=== PATIENT | male | born 1940 | race Asian ===

== ENCOUNTER 2018-02-08 10:09 | Emergency (ER) | payer OTHER, BC, MEDICARE ==
[2018-02-08 11:14] LABS: ADD MAN DIFF? NO
[2018-02-08 11:15] LABS: WHITE BLOOD COUNT 8.5 10^3/ul (4.8-10.8)
[2018-02-08 11:15] LABS: BASOPHILS % 0.5 % (0.0-2.0); EOSINOPHILS # 0.2 10^3/ul (0.0-0.5); EOSINOPHILS % 2.2 % (0.0-7.0); HEMATOCRIT 41.7 % (42.0-52.0); HEMOGLOBIN 14.3 g/dl (14.0-18.0); LYMPHOCYTES # 2.9 10^3/ul (0.8-2.9); LYMPHOCYTES % 33.6 % (15.0-51.0); MEAN CORPUSCULAR HEMOGLOBIN 29.4 pg (29.0-33.0); MEAN CORPUSCULAR HGB CONC 34.3 g/dl (32.0-37.0); MEAN CORPUSCULAR VOLUME 85.8 fl (82.0-101.0); MEAN PLATELET VOLUME 9.6 fl (7.4-10.4); MONOCYTE # 0.6 10^3/ul (0.3-0.9); MONOCYTES % 6.7 % (0.0-11.0); NEUTROPHIL # 4.8 10^3/ul (1.6-7.5); NEUTROPHILS % 56.9 % (39.0-77.0); PLATELET COUNT 203 10^3/UL (140-415); RED BLOOD COUNT 4.86 10^6/ul (4.70-6.10); RED CELL DISTRIBUTION WIDTH 12.1 % (11.5-14.5)
[2018-02-08 11:29] LABS: ADD UMIC NO; UR ASCORBIC ACID NEGATIVE (NEGATIVE); UR BILIRUBIN (Dip) NEGATIVE (NEGATIVE); UR BLOOD (Dip) NEGATIVE (NEGATIVE); UR CLARITY CLEAR (CLEAR); UR COLOR YELLOW (YELLOW); UR GLUCOSE (Dip) 3+ mg/dL (NEGATIVE); UR KETONES (Dip) NEGATIVE (NEGATIVE); UR LEUKOCYTE ESTERASE (Dip) NEGATIVE Leu/ul (NEGATIVE); UR NITRITE (Dip) NEGATIVE (NEGATIVE); UR SPECIFIC GRAVITY (Dip) 1.023 (1.003-1.030); UR TOTAL PROTEIN (Dip) NEGATIVE (NEGATIVE); UR UROBILINOGEN (Dip) NEGATIVE (NEGATIVE)
[2018-02-08 11:35] LABS: ALANINE AMINOTRANSFERASE 80 IU/L (13-69); ALBUMIN 4.6 g/dl (3.3-4.9); ALBUMIN/GLOBULIN RATIO 1.24; ALKALINE PHOSPHATASE 158 IU/L (42-121); ANION GAP 24 (8-16); ASPARTATE AMINO TRANSFERASE 45 IU/L (15-46); BILIRUBIN,INDIRECT 0.2 mg/dl (0-1.1); BILIRUBIN,TOTAL 0.2 mg/dl (0.2-1.3); BLOOD UREA NITROGEN 18 mg/dl (7-20); CALCIUM 9.7 mg/dl (8.4-10.2); CARBON DIOXIDE 20 mmol/L (21-31); CHLORIDE 102 mmol/L (97-110); CREATININE 0.82 mg/dl (0.61-1.24); GLUCOSE 275 mg/dl (70-220); POTASSIUM 4.5 mmol/L (3.5-5.1); SODIUM 141 mmol/L (135-144); TOTAL PROTEIN 8.3 g/dl (6.1-8.1)
== END 2018-02-08 13:09 | disposition home or self-care (01) ==
LOC: FTE 10:09
DX: S20.211A Contusion of right front wall of thorax, initial encounter (principal); R51 Headache; R06.02 Shortness of breath; I10 Essential (primary) hypertension; E11.9 Type 2 diabetes mellitus without complications; W01.0XXA Fall on same level from slipping, tripping and stumbling without subsequent striking against object, initial encounter; Y92.9 Unspecified place or not applicable; Z79.82 Long term (current) use of aspirin; Z79.84 Long term (current) use of oral hypoglycemic drugs
CPT/HCPCS: 36415; 70450; 71045; 80053; 81003; 85025; 99285-25

== ENCOUNTER 2018-12-31 14:44 | Inpatient (IN) | payer OTHER, BC ==
[2018-12-31] MEDS: ONDANSETRON 4 MG INJ IV (18:02)
[2018-12-31 18:11] LABS: URINE PH (Dip) POC 5.5 (5.0-8.5)
[2018-12-31 18:11] LABS: URINE BLOOD (Dip) POC 2+ (NEGATIVE); URINE KETONES (Dip) POC 1+ (NEGATIVE); URINE LEUKOCYTE EST (Dip) POC Trace (NEGATIVE); URINE NITRITE (Dip) POC Negative (NEGATIVE); URINE TOTAL PROTEIN POC 2+ (NEGATIVE)
[2018-12-31 18:19] LABS: ADD MAN DIFF? NO
[2018-12-31 18:22] LABS: BASOPHILS % 0.3 % (0.0-2.0); HEMATOCRIT 42.5 % (42.0-52.0); HEMOGLOBIN 14.1 g/dl (14.0-18.0); LYMPHOCYTES # 1.5 10^3/ul (0.8-2.9); LYMPHOCYTES % 12.4 % (15.0-51.0); MEAN CORPUSCULAR HEMOGLOBIN 29.1 pg (29.0-33.0); MEAN CORPUSCULAR HGB CONC 33.2 g/dl (32.0-37.0); MEAN CORPUSCULAR VOLUME 87.8 fl (82.0-101.0); MEAN PLATELET VOLUME 9.8 fl (7.4-10.4); MONOCYTE # 0.8 10^3/ul (0.3-0.9); MONOCYTES % 6.7 % (0.0-11.0); NEUTROPHIL # 9.7 10^3/ul (1.6-7.5); PLATELET COUNT 207 10^3/UL (140-415); RED BLOOD COUNT 4.84 10^6/ul (4.70-6.10); RED CELL DISTRIBUTION WIDTH 11.9 % (11.5-14.5)
[2018-12-31 18:22] LABS: WHITE BLOOD COUNT 12.1 10^3/ul (4.8-10.8)
[2018-12-31 18:38] LABS: ALANINE AMINOTRANSFERASE 46 IU/L (13-69); ALBUMIN 4.8 g/dl (3.3-4.9); ALBUMIN/GLOBULIN RATIO 1.45; ALKALINE PHOSPHATASE 69 IU/L (42-121); ANION GAP 37 (5-13); ASPARTATE AMINO TRANSFERASE 52 IU/L (15-46); BLOOD UREA NITROGEN 88 mg/dl (7-20); CALCIUM 10.5 mg/dl (8.4-10.2); CARBON DIOXIDE 14 mmol/L (21-31); CHLORIDE 82 mmol/L (97-110); GLUCOSE 208 mg/dl (70-220); LIPASE 302 U/L (23-300); SODIUM 133 mmol/L (135-144); TOTAL PROTEIN 8.1 g/dl (6.1-8.1)
[2018-12-31 18:45] LABS: CREATININE 8.21 mg/dl (0.61-1.24)
[2018-12-31 18:47] LABS: POTASSIUM 7.1 mmol/L (3.5-5.1)
[2018-12-31 19:17] LABS: ANION GAP 33 (5-13); BLOOD UREA NITROGEN 91 mg/dl (7-20); CALCIUM 10.6 mg/dl (8.4-10.2); CARBON DIOXIDE 14 mmol/L (21-31); CHLORIDE 86 mmol/L (97-110); GLUCOSE 204 mg/dl (70-220); SODIUM 133 mmol/L (135-144)
[2018-12-31 19:18] LABS: POTASSIUM 7.7 mmol/L (3.5-5.1)
[2018-12-31] MEDS: ALBUTEROL 0.5% (NEB) 2.5 MG/0.5 ML AMP INH (19:25)
[2018-12-31 19:27] LABS: CREATININE 8.17 mg/dl (0.61-1.24)
[2018-12-31] MEDS ORDERED: DEXTROSE 50% 50 ML SYRINGE IV (19:30)
[2018-12-31] MEDS ORDERED: DEXTROSE 5%-0.45% NACL 1,000 ML IV (19:46)
[2018-12-31] MEDS ORDERED: ALBUTEROL 0.083% (NEB) 2.5 MG/3 ML AMP HHN (20:00)
[2018-12-31] MEDS ORDERED: ACETAMINOPHEN 650MG/20.3ML CUP PO (20:00)
[2018-12-31] MEDS ORDERED: ONDANSETRON 4 MG INJ IV (20:00)
[2018-12-31] MEDS: DEXTROSE 50% 50 ML SYRINGE IV (20:03)
[2018-12-31] MEDS: INSULIN REGULAR, HUMAN 100 UNIT/1 ML 3ML VIAL IVP (20:04)
[2018-12-31 20:14] LABS: HEMOGLOBIN A1C 10.9 % (0-5.9)
[2018-12-31] MEDS ORDERED: METOPROLOL 5 MG INJ IV (20:30)
[2018-12-31] MEDS: SOD CHLORIDE 0.9% 1,000 ML IV (20:31)
[2018-12-31] MEDS ORDERED: ATORVASTATIN 80 MG TAB PO (21:00)
[2018-12-31] MEDS: hydrALAzine 20 MG INJ IV (22:05)
[2018-12-31] MEDS: morphine 2 MG INJ IV (22:05)
[2018-12-31 22:13] LABS: CREATINE KINASE 155 IU/L (23-200)
[2018-12-31] MEDS: SODIUM BICARBONATE (IV ADD) 150 MEQ in DEXTROSE 5% 850 ML IV (22:18)
[2018-12-31] MEDS: ATORVASTATIN 40 MG TAB PO (23:32)
[2019-01-01] MEDS: NA POLYST SULFON 15 GM/60 ML BTL PO (01:02)
[2019-01-01 01:10] LABS: ANION GAP 43 (5-13); BLOOD UREA NITROGEN 89 mg/dl (7-20); CALCIUM 9.8 mg/dl (8.4-10.2); CHLORIDE 82 mmol/L (97-110); GLUCOSE 256 mg/dl (70-220); SODIUM 133 mmol/L (135-144)
[2019-01-01 01:14] LABS: CARBON DIOXIDE 8 mmol/L (21-31); POTASSIUM 6.6 mmol/L (3.5-5.1)
[2019-01-01 01:21] LABS: CREATININE 8.53 mg/dl (0.61-1.24)
[2019-01-01] MEDS ORDERED: DEXTROSE 50% 50 ML SYRINGE IV ×3 (01:30→14:00)
[2019-01-01] MEDS: INSULIN REGULAR, HUMAN 100 UNIT/1 ML 3ML VIAL IVP (02:14)
[2019-01-01 05:11] LABS: ADD MAN DIFF? NO
[2019-01-01] MEDS: PANTOPRAZOLE 40 MG INJ IV (05:22)
[2019-01-01 05:25] LABS: BASOPHILS % 0.2 % (0.0-2.0); HEMATOCRIT 42.1 % (42.0-52.0); HEMOGLOBIN 14.3 g/dl (14.0-18.0); LYMPHOCYTES # 1.7 10^3/ul (0.8-2.9); LYMPHOCYTES % 10.7 % (15.0-51.0); MEAN CORPUSCULAR HEMOGLOBIN 29.8 pg (29.0-33.0); MEAN CORPUSCULAR VOLUME 87.7 fl (82.0-101.0); MEAN PLATELET VOLUME 10.1 fl (7.4-10.4); MONOCYTE # 1.5 10^3/ul (0.3-0.9); MONOCYTES % 9.7 % (0.0-11.0); NEUTROPHIL # 12.2 10^3/ul (1.6-7.5); NEUTROPHILS % 78.8 % (39.0-77.0); PLATELET COUNT 193 10^3/UL (140-415); RED CELL DISTRIBUTION WIDTH 12.1 % (11.5-14.5)
[2019-01-01 05:25] LABS: WHITE BLOOD COUNT 15.4 10^3/ul (4.8-10.8)
[2019-01-01 06:56] LABS: PHOSPHORUS 11.8 mg/dl (2.5-4.9)
[2019-01-01] MEDS: SODIUM BICARBONATE (IV ADD) 150 MEQ in DEXTROSE 5% 850 ML IV (07:30)
[2019-01-01 08:21] LABS: ALANINE AMINOTRANSFERASE 56 IU/L (13-69); ALBUMIN/GLOBULIN RATIO 1.37; ALKALINE PHOSPHATASE 58 IU/L (42-121); ANION GAP 41 (5-13); ASPARTATE AMINO TRANSFERASE 67 IU/L (15-46); BLOOD UREA NITROGEN 93 mg/dl (7-20); CALCIUM 9.1 mg/dl (8.4-10.2); CARBON DIOXIDE 12 mmol/L (21-31); CHLORIDE 83 mmol/L (97-110); GLUCOSE 198 mg/dl (70-220); MAGNESIUM 2.8 mg/dl (1.7-2.5); POTASSIUM 5.7 mmol/L (3.5-5.1); SODIUM 136 mmol/L (135-144); TOTAL PROTEIN 6.9 g/dl (6.1-8.1)
[2019-01-01] MEDS: ASPIRIN (EC) 81 MG TAB PO (08:26)
[2019-01-01] MEDS: ENOXAPARIN 30 MG/0.3 ML SYG SC (08:26)
[2019-01-01 08:31] LABS: CREATININE 8.19 mg/dl (0.61-1.24)
[2019-01-01 09:05] LABS: Allen Test ACCEPTAB; Arterial Base Excess -11.8 mmol/L (-3.0-3); Arterial Blood Gas Oxygen Sat 95.8 mmHG (95.0-100.0); Arterial COHb 0.3 % (0.0-3.0); Arterial Fraction of Oxyhgb 95.1 % (93.0-99.0); Arterial HCO3 11.9 mmol/L (22.0-26.0); Arterial MetHb 0.4 % (0.0-1.5); Arterial pCO2 22.8 mmhg (35-45); MODE ROOM AIR; Site Right Radial
[2019-01-01] MEDS ORDERED: HEPARIN 5,000 UNIT/1 ML VIAL (09:15)
[2019-01-01] MEDS ORDERED: LIDOCAINE 1% (MDV) 20 ML INJ (09:15)
[2019-01-01] MEDS: LIDOCAINE 1% (MDV) 20 ML INJ SC (09:17)
[2019-01-01] MEDS: HEPARIN 5,000 UNIT/1 ML VIAL CATHETER (09:21)
[2019-01-01] MEDS ORDERED: HEPARIN 5,000 UNIT/1 ML VIAL SC (09:30)
[2019-01-01] MEDS ORDERED: morphine LIQ (10 MG/5 ML) CUP PO (12:00)
[2019-01-01] MEDS ORDERED: GLUCOSE GEL 15 GRAM TUBE BUCCAL (14:00)
[2019-01-01] MEDS ORDERED: GLUCOSE GEL 15 GRAM TUBE PO ×2 (14:00)
[2019-01-01] MEDS ORDERED: GLUCAGON 1 MG INJ IM (14:00)
[2019-01-01 14:16] LABS: HEPATITIS B SURFACE ANTIGEN NEGATIVE (NEGATIVE)
[2019-01-01] MEDS ORDERED: MANNITOL 25% 50 ML INJ IV* (15:00)
[2019-01-01] MEDS: MANNITOL 25% 50 ML INJ IV* ×2 (15:35→16:37)
[2019-01-01 15:36] LABS: HEPATITIS B SURFACE ANTIBODY INDETERMINATE (NEGATIVE)
[2019-01-01] MEDS: HEPARIN 1000 UNITS/ML 10 ML INJ CATHETER (17:44)
[2019-01-01] MEDS: INSULIN ASPART [NOVOLOG] 3 ML PEN SC ×3 (18:35→21:00)
[2019-01-01] MEDS: ATORVASTATIN 40 MG TAB PO (21:08)
[2019-01-01] MEDS: HEPARIN 5,000 UNIT/1 ML VIAL SC (21:12)
[2019-01-01] MEDS: INSULIN GLARGINE [LANTus] (100 UNITS/ML) SYG SC (21:13)
[2019-01-02 04:03] LABS: PROTEIN, TOTAL 6.2 g/dL (6.1-8.1)
[2019-01-02 05:24] LABS: ADD MAN DIFF? NO
[2019-01-02 05:28] LABS: BASOPHIL # 0.1 10^3/ul (0.0-0.1); BASOPHILS % 0.6 % (0.0-2.0); EOSINOPHILS % 0.1 % (0.0-7.0); HEMATOCRIT 37.6 % (42.0-52.0); HEMOGLOBIN 13.1 g/dl (14.0-18.0); LYMPHOCYTES # 1.2 10^3/ul (0.8-2.9); MEAN CORPUSCULAR HEMOGLOBIN 29.6 pg (29.0-33.0); MEAN CORPUSCULAR HGB CONC 34.8 g/dl (32.0-37.0); MEAN CORPUSCULAR VOLUME 85.1 fl (82.0-101.0); MEAN PLATELET VOLUME 10.1 fl (7.4-10.4); MONOCYTE # 1.1 10^3/ul (0.3-0.9); MONOCYTES % 13.1 % (0.0-11.0); NEUTROPHIL # 6.2 10^3/ul (1.6-7.5); NEUTROPHILS % 71.8 % (39.0-77.0); PLATELET COUNT 180 10^3/UL (140-415); RED BLOOD COUNT 4.42 10^6/ul (4.70-6.10); RED CELL DISTRIBUTION WIDTH 11.9 % (11.5-14.5)
[2019-01-02 05:28] LABS: WHITE BLOOD COUNT 8.6 10^3/ul (4.8-10.8)
[2019-01-02] MEDS: PANTOPRAZOLE (EC) 40 MG TAB PO (05:31)
[2019-01-02 05:55] LABS: ALANINE AMINOTRANSFERASE 77 IU/L (13-69); ALBUMIN 3.7 g/dl (3.3-4.9); ALBUMIN/GLOBULIN RATIO 1.19; ALKALINE PHOSPHATASE 60 IU/L (42-121); ANION GAP 22 (5-13); ASPARTATE AMINO TRANSFERASE 76 IU/L (15-46); BILIRUBIN,INDIRECT 0.2 mg/dl (0-1.1); BILIRUBIN,TOTAL 0.2 mg/dl (0.2-1.3); BLOOD UREA NITROGEN 76 mg/dl (7-20); CALCIUM 7.6 mg/dl (8.4-10.2); CARBON DIOXIDE 23 mmol/L (21-31); CHLORIDE 89 mmol/L (97-110); CREATININE 6.61 mg/dl (0.61-1.24); GLUCOSE 168 mg/dl (70-220); MAGNESIUM 2.2 mg/dl (1.7-2.5); POTASSIUM 4.3 mmol/L (3.5-5.1); SODIUM 134 mmol/L (135-144); TOTAL PROTEIN 6.8 g/dl (6.1-8.1)
[2019-01-02 06:36] LABS: ADD UMIC YES; UR ASCORBIC ACID NEGATIVE (NEGATIVE); UR BACTERIA FEW /HPF (NONE SEEN); UR BILIRUBIN (Dip) NEGATIVE (NEGATIVE); UR BLOOD (Dip) 3+ mg/dL (NEGATIVE); UR CLARITY CLEAR (CLEAR); UR COLOR STRAW (YELLOW); UR GLUCOSE (Dip) 2+ mg/dL (NEGATIVE); UR KETONES (Dip) 1+ mg/dL (NEGATIVE); UR LEUKOCYTE ESTERASE (Dip) NEGATIVE Leu/ul (NEGATIVE); UR NITRITE (Dip) NEGATIVE (NEGATIVE); UR RBC 103 /HPF (0-5); UR SPECIFIC GRAVITY (Dip) 1.009 (1.003-1.030); UR TOTAL PROTEIN (Dip) 1+ mg/dl (NEGATIVE); UR UROBILINOGEN (Dip) NEGATIVE (NEGATIVE); UR WBC 2 /HPF (0-5)
[2019-01-02 06:45] LABS: CREATININE,URINE RANDOM 19.26 mg/dl (20-370); PROTEIN/CREAT RATIO 2.12 RATIO
[2019-01-02] MEDS: HEPARIN 5,000 UNIT/1 ML VIAL SC ×2 (08:47→21:52)
[2019-01-02] MEDS: INSULIN ASPART [NOVOLOG] 3 ML PEN SC ×7 (08:47→21:00)
[2019-01-02] MEDS: ASPIRIN (EC) 81 MG TAB PO (08:50)
[2019-01-02] MEDS ORDERED: AMLODIPINE 2.5 MG TAB PO (09:00)
[2019-01-02 09:44] LABS: PHOSPHORUS 7.7 mg/dl (2.5-4.9)
[2019-01-02 15:42] LABS: ALBUMIN 3.5 g/dL (3.8-4.8); ALPHA-1-GLOBULINS 0.3 g/dL (0.2-0.3); ALPHA-2-GLOBULINS 0.7 g/dL (0.5-0.9); BETA 2 GLOBULINS 0.4 g/dL (0.2-0.5); BETA GLOBULINS 0.5 g/dL (0.4-0.6); GAMMA GLOBULINS 0.8 g/dL (0.8-1.7)
[2019-01-02] MEDS: CALCIUM ACETATE 667 MG CAP PO ×2 (17:31→17:45)
[2019-01-02 18:47] LABS: PTH CALCIUM 9.2 mg/dL (8.6-10.3)
[2019-01-02] MEDS: INSULIN GLARGINE [LANTus] (100 UNITS/ML) SYG SC (20:16)
[2019-01-02] MEDS: ATORVASTATIN 40 MG TAB PO (21:49)
[2019-01-03] MEDS: ALBUMIN HUMAN 25% 100 ML IV (00:29)
[2019-01-03] MEDS: HEPARIN 1000 UNITS/ML 10 ML INJ CATHETER (02:01)
[2019-01-03 07:51] LABS: PTH INTACT 145 pg/mL (14-64)
[2019-01-04 00:07] LABS: PTH CALCIUM 7.4 mg/dL (8.6-10.3)
[2019-01-04 08:41] LABS: PTH INTACT 440 pg/mL (14-64)
== END 2019-01-03 03:23 | disposition short-term general hospital (02) | DRG 683 ==
LOC: E/R 14:44 → ICU 19:43
PROVIDERS: Internal Medicine
PROC: 5A1D70Z Performance of Urinary Filtration, Intermittent, Less than 6 Hours Per Day (ICD-10-PCS; principal; 2019-01-01)
PROC: 06HM33Z Insertion of Infusion Device into Right Femoral Vein, Percutaneous Approach (ICD-10-PCS; 2019-01-01)
PROC: B54BZZA Ultrasonography of Right Lower Extremity Veins, Guidance (ICD-10-PCS; 2019-01-01)
DX: N17.9 Acute kidney failure, unspecified (principal); E87.1 Hypo-osmolality and hyponatremia; E87.2 Acidosis; E87.5 Hyperkalemia; E11.22 Type 2 diabetes mellitus with diabetic chronic kidney disease; E11.65 Type 2 diabetes mellitus with hyperglycemia; E83.52 Hypercalcemia; Z72.0 Tobacco use; E86.0 Dehydration; K52.9 Noninfective gastroenteritis and colitis, unspecified; Z86.73 Personal history of transient ischemic attack (TIA), and cerebral infarction without residual deficits; I12.9 Hypertensive chronic kidney disease with stage 1 through stage 4 chronic kidney disease, or unspecified chronic kidney disease; N18.9 Chronic kidney disease, unspecified
CPT/HCPCS: 36415; 36600; 71045; 74176; 76775; 80048; 80053; 81001; 81003; 82550; 82570; 82803; 82962; 83036; 83690; 83735; 83970; 84100; 84155; 84165; 85025; 86706; 87081; 87086; 87340; 90935; 93005; 94664; 96374; 99291-25